=== PATIENT | male | born 1975 | race Asian ===

== ENCOUNTER 2022-01-31 08:30 | Emergency (ER) | payer BC ==
[~2022-01-31] VITALS: Ht 170.2 cm; Wt 79.4 kg
[2022-01-31 08:35] VITALS: TEMP 96.8
[2022-01-31 09:12] VITALS: BP 114/73
== END 2022-01-31 09:12 | disposition home or self-care (01) ==
LOC: ED 08:30
DX: S39.011A Strain of muscle, fascia and tendon of abdomen, initial encounter (principal); X50.9XXA Other and unspecified overexertion or strenuous movements or postures, initial encounter; Y92.89 Other specified places as the place of occurrence of the external cause
CPT/HCPCS: 99282